=== PATIENT | female | born 1960 | race Caucasian/White ===

== ENCOUNTER → 2016-03-18 | Outpatient (CLI) | payer OTHER ==
[~2016-03-18] MED LIST: GADOBUTROL 10 ML VIAL IVP ONE
--- NOTE | 2016-03-18 11:59 | MR ---
MRI of the Brain (Without and With Contrast) Clinical History: 55-year-old female with a history of multiple sclerosis. ICD 10 Diagnostic Codes: R28.89, R20.2, and G35. Technique: T1-weighted images were acquired axially and sagittally from the foramen magnum to the valentino denis. Axial fast inversion recovery, fast T2-weighted, and diffusion-weighted axial images were obtai hayden without contrast. Postcontrast axial and coronal T1W, and sagittal T2 FLAIR images followed the u neventful intravenous administration of 8 mL of Gadavist contrast. This was performed in conjunction with contrast-enhanced MR imaging of the cervical and thoracic spine, which will be reported separate ly. Comparison Study: Unenhanced CT scan of the brain, dated July 15, 2013. Findings: There is mild prominence of the ventricles and basilar cisterns, consistent with some mild underlying atrophy. There are extensive bilateral subcortical and deep white matter areas of discrete and more confluent hyperintense T2-weighted, signal at and above the level of the ventricles, howeve r also noted posterior to the occipital horns, throughout the salud, and extending to the periventricu lar and cerebellar portions of the superior and middle cerebellar peduncles. Many of the supra and in fratentorial lesions do enhance. There are a couple of ring-enhancing lesions seen in the left fronta l lobe. There is an 11 mm enhancing lesion in the left splenium of the corpus callosum. These aggrega te findings likely represent areas of active demyelination (presuming that the patient does not also have concurrent underlying metastatic disease of other etiology). On the FLAIR sequences, many of the se lesions have an orientation perpendicular to the lateral ventricles (oftentimes seen in multiple s clerosis). Many of the lesions throughout the supra- and infratentorial also have restricted diffusio n, however these findings are likely secondary to T2 shine through as the lesions appear hyperintense on the ADC map. The SWI sequences did not reveal any blooming artifact to suggest occult hemorrhagic products or amyloid angiopathy. There is no acute intracranial hemorrhage. The cerebellar tonsils are in a normal position. The pitui tary gland is normal in size. Normally-expected signal flow-voids are noted in the superior sagittal sinus, the vertebrobasilar artery, and in both internal carotid arteries indicating patency. Postcont rast images demonstrate no abnormal leptomeningeal enhancement. The paranasal sinuses and the mastoid air cells are clear. The orbits and pineal gland are normal. Impression: Numerous supra- and infratentorial foci of discrete and more confluent white matter disea se are most consistent with multiple sclerosis, with areas of acute demyelination. Clinical correlati on and short-term repeat MR evaluation in 3 months may be helpful to assess for interval change.
--- NOTE | 2016-03-18 13:01 | MR ---
Unenhanced and Enhanced MR Imaging of the Cervical Spine Clinical History: 55-year-old female with gait and mobility abnormalities, skin paresthesias, and a h istory of multiple sclerosis. ICD 10 Diagnostic Codes: R26.89, R20.2, and G35. Technique: Sagittal T1, T2, STIR, and contrast-enhanced fat-saturated T1 and T2 FLAIR sequences were obtained from the level of the clivus caudally to the T5-T6 disk interspace. These are supplemented b y 3-D FSE T2 and pre and postcontrast axial T1-weighted sequences. The patient received 8 mL of IV Ga davist without complication. This exam was performed in conjunction with MR imaging of the brain and thoracic spine, which are separately reported. Comparison Study: None. Findings: The cervical vertebral body heights and posterior alignments are maintained. There is some degenerative disk desiccation seen at multiple levels. There is mild posterior C3-C4 and moderate pos terior C4-C5, C5-C6, and C6-C7 degenerative disk space narrowing. Bone marrow signal is notable for a T1 and T2-weighted hyperintense benign hemangioma which "nulls" on the inversion recovery sequences at the right C4 centrum. There is an abnormal appearance to the spinal cord with some subtle increase d signal seen on the T2-weighted sequences at C2, C4, C5, and the C7 levels; however, with gadolinium , there is enhancement of the cord at C5 and C7 levels and in a patient with a history of multiple sc lerosis, these features would be consistent with acute demyelination. The visualized infratentorial s tructures demonstrate abnormal T2-weighted signal with some mild enhancement at the caudal margin of the salud near the cerebellar peduncle. This anatomy was better delineated on the dedicated MRI study. The prevertebral soft tissues and paraspinal musculature appear normal. There is no evidence of cere bellar tonsillar ectopia. The predental space is normal. There is no stenosis at the C1-C2 level. At the C2-C3 level, there is no focal disc herniation, or significant central canal or neural foramin al stenosis. At the C3-C4 level, there is some minimal circumferential disk bulging; however, there is an adequate amount of CSF ventral and dorsal to the cord. The neural foramina and lateral recesses are patent. At the C4-C5 level, there is some minimal circumferential disk bulging with adequate CSF ventral and dorsal to the cord. Uncovertebral osteophyte results in a mild degree of left and a moderate degree o f right neural foraminal narrowing. At the C5-C6 level, a dorsal disk osteophyte complex results in mild central canal stenosis. Uncovert ebral hypertrophy results in moderate bilateral neural foraminal stenosis. At the C6-C7 level, there is some minimal broad-based circumferential disk bulging without central ca nal stenosis. Mild uncovertebral hypertrophy on the left results in mild left C6-C7 neural foraminal narrowing. The right neural foramen is patent. At the C7-T1 level, there is no central canal or neural foraminal stenosis. The visualized upper thoracic spine is unremarkable. There is some flow-related CSF dorsal to the cor d in this patient with a capacious thecal sac. Impression: 1. There are infratentorial demyelinating lesions which were better delineated on MR imaging of the b rain, and there are also foci of demyelination in the cervical cord at C2, C4, C5, and C7 with areas of acute demyelination at the C5 and C7 levels. 2. Mild degenerative spondylosis and disk disease with some uncovertebral hypertrophy, resulting in s ome neural foraminal stenoses at C4-C5, C5-C6, and C6-C7, as detailed above.
--- NOTE | 2016-03-18 15:27 | MR ---
Unenhanced and Enhanced MR Imaging of the Thoracic Spine Clinical History: 55-year-old female with gait and mobility abnormality, skin paresthesias, and a monster or history of multiple sclerosis. ICD 10 Diagnostic Codes: R26.89, R20.2, and G35. Technique: Sagittal T1-weighted survey sequences of the cervical, thoracic, and lumbar spine were obt ained for the purposes of counting vertebral bodies. Subsequently, sagittal T1, FSE T2, STIR, and fat saturated contrast-enhanced T1-weighted sequences of the thoracic spine were obtained, and supplemen neri by stacked axial T1 pre- and postcontrast and FSE T2-weighted sequences. The patient received 8 m L of IV Gadavist without complication. This exam was performed in conjunction with MR imaging of the cervical spine and brain, reported separately. Findings: The thoracic vertebral body heights and posterior alignments are maintained. Bone marrow si gnal is essentially within normal limits. There is some minimal cortical endplate degenerative change along the anterior margins of T7-T8, where there is some very mild anterior disk space narrowing. Th e conus medullaris has a normal morphology, terminating at the T12-L1 junction. There is some CSF roni w-related artifact dorsal to the cord in this patient with a capacious thecal sac. There is no focal disk herniation, canal stenosis, or neural foraminal impingement. The thoracic cord signal and calibe r are normal. There is no focus of demyelination, unusual enhancement, myelomalacia, or syrinx. Degenerative disk disease at C5-C6 and C6-C7 was previously noted on the MRI study, which had also de monstrated some demyelinating lesions at C5 and C7. The visualized prevertebral soft tissues are norm al. There are tiny bilateral pleural effusions. A moderate-sized hiatal hernia is identified. There i s a tiny cortical cyst in the upper pole of the right kidney and left kidney. Impression: 1. The MRI appearance of the thoracic spine is within normal limits for age. 2. Tiny bilateral pleural effusions. 3. Moderate-sized hiatal hernia. Please also refer to the report of the MRI of the cervical spine which identified areas of cord demye lination.
== END ==
LOC: FIMAGING 08:30
PROVIDERS: ATTEND Psychiatry & Neurology Neurology
DX: M50.322 Other cervical disc degeneration at C5-C6 level (principal); M50.323 Other cervical disc degeneration at C6-C7 level; M47.892 Other spondylosis, cervical region; M48.02 Spinal stenosis, cervical region; G35 Multiple sclerosis; J90 Pleural effusion, not elsewhere classified; K44.9 Diaphragmatic hernia without obstruction or gangrene
CPT/HCPCS: A9585

== ENCOUNTER 2017-03-11 16:03 | Inpatient (IN) | payer OTHER ==
[2017-03-13] MEDS ORDERED: ONDANSETRON 4 MG/2 ML VIAL IV PRN (13:40)
[2017-03-13] MEDS ORDERED: predniSONE 20 MG TAB PO SCH (13:45)
--- NOTE | 2017-03-13 14:17 | GHP ---
[f rep st] HISTORY AND PHYSICAL POST ADMISSION PHYSICIAN EVALUATION AND REHABILITATION TREATMENT PLAN DATE OF ADMISSION: 03/13/2017 DATE OF EVALUATION: March 13, 2017. TIME OF EVALUATION: 12:55. REFERRING FACILITY: [facility]. REFERRING PHYSICIAN: Ashley Chandler MD IMPAIRMENT GROUP: 3.1. DATE OF ONSET: 03/07/2017. CONSULTING PHYSICIANS: She was seen by neurologist, Dr. Solorzano. REHABILITATION DIAGNOSIS: Multiple sclerosis flare with left-sided weakness. ETIOLOGIC DIAGNOSIS: Multiple sclerosis. HISTORY OF PRESENT ILLNESS: This patient came to [facility] with acute weakness and inability to walk. She has a history of multiple sclerosis and had exacerbations in the previous year. She was treated with Copaxone, but had subsequent exacerbations while on Copaxone, so it was discontinued. She also had urinary incontinence. Weakness had begun approximately 4 weeks previously and had progressed more rapidly in the previous several days. She had an MRI of the brain in the emergency department, which showed areas of active demyelination. She was seen by Neurology and she was treated with IV methylprednisolone 1 g per day for 5 days, and subsequently started on an oral prednisone taper. She was beginning to ambulate at discharge, and was appropriate for inpatient rehabilitation to optimize her mobility and activities of daily living. STUDIES AND LABS: Other than the MRI, she had CBC and a basic metabolic profile done, which were essentially within normal limits. Urinalysis was done , which showed trace of leukocyte esterase, and I have no record of the culture results, but presumably it was negative. TSH was normal. PRECAUTIONS: She is a fall risk. ACTIVE COMORBIDITIES: She has a tier 3 comorbidity of hemiparesis. She otherwise has no active tier 1, tier 2 or tier 3 comorbidities. PAST MEDICAL HISTORY: Is significant only for multiple sclerosis. She has not had any surgeries. PREHOSPITAL MEDICATIONS: She had been started on prednisone prior to her admission. She also took a vitamin D supplement. ADMISSION MEDICATIONS: 1. Prednisone on a taper from 60 mg over 2 weeks. 2. Cholecalciferol 400 units/mL oral drops 2000 units p.o. daily. 3. Pantoprazole 40 mg p.o. daily while taking steroids. ALLERGIES: She is allergic to penicillins. PSYCHOSOCIAL HISTORY: She is . She lives with her . She has 3 adult children, 2 of whom are in [place], and 1 of whom is at the [facility] in [place]. She is a nonsmoker and nondrinker. She and her live in a 1 level house with no steps to enter. 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 FAMILY HISTORY: Her mother of heart disease. Her father had head and neck cancer. He was a smoker. REVIEW OF SYSTEMS: She denies pain, cough, dyspnea, fevers, chills, chest pain , palpitations, nausea, vomiting, diarrhea or constipation. She has awareness of need to urinate, but then she has incontinence; this happens 2 or 3 times through the day, and also at night. She denies dysuria. She denies recent weight gain or weight loss. She denies joint swelling or joint pain. Otherwise , a 10-point review of systems is negative. PHYSICAL EXAM: VITAL SIGNS: Blood pressure is 96/64, heart rate is 86, respiratory rate is 16, oxygen saturation is 93% on room air. Temperature is 36.7 degrees centigrade. Her weight is 72.6 kg, for a body mass index of 23. GENERAL: This is a well-nourished, well-developed woman, lying in bed, dressed in street clothes. Cooperative and in no acute distress. HEENT: Extraocular movements are intact. Pupils are equal, round, and reactive to light. Mucous membranes are moist. Dentition is in good condition. There are no oropharyngeal mucosal lesions. She has an uncrowded airway, Mallampati class 2. She has mild dysarthria. NECK: Supple. HEART: There is a regular rate and rhythm with no murmurs, rubs, or gallops. LUNGS: Clear to auscultation bilaterally. ABDOMEN : Soft, nontender, nondistended, with normoactive bowel sounds. There is no palpable bladder. EXTREMITIES: There is no cyanosis, clubbing, or edema. Radial and dorsalis pedis pulses are 2+ bilaterally. NEUROLOGIC: She is alert and oriented x3. Cranial nerves 2-12 are grossly intact, but there is mild dysarthria. Motor strength on the right is 5/5 in the upper and lower extremities, and the left hand instructional technologist is 3 to 4/5, biceps are 4/5, triceps are 3/ 5. In the leg, hip flexor is 3/5, quadriceps are 4 to 5/5, and hamstrings are 3 /5. Sensation is intact to light touch overall. Deep tendon reflexes are 2+ bilaterally at the biceps, patellar, and Achilles tendons. There is no tremor. She needs assistance to arise from supine to seated, but when she is seated, she can maintain seated posture with support of her arms, the left more so than the right. CURRENT LEVEL OF FUNCTION: Per the pre-admission screen, regarding grooming she needed moderate assistance, it was done standing at the sink. Dressing required moderate assistance for lower extremities and supervision and setup for the upper extremities. Bladder function was noted to need moderate assistance. Bed mobility was done with minimal assistance. Transfers with moderate assistance. Balance was poor, endurance was poor. She ambulated 10 feet on 2 occasions. She was noted to have mild dysarthria. Regarding cognition, she was noted to be alert and oriented. She followed simple directions and verbal cues. She was impulsive and overall needed minimal assistance for cognitive tasks. She was noted to have low endurance and poor balance. On today's exam, there are no changes from the preadmission screen. IMPRESSION: This is a 56-year-old woman with a 15 year history of multiple sclerosis. She has had exacerbations in the past year, which broke through treatment with Copaxone and now she comes in with another exacerbation, which has left her with considerable debility, regarding mobility and activities of daily living. Additionally, she has dysarthria and cognitive impairment. She has urinary incontinence; unclear whether she is developing neurogenic bladder or whether it is related to immobility. She will benefit from inpatient rehabilitation, where she will receive physical and occupational therapy to optimize mobility and activities of daily living, towards discharge to home with assistance of her . It is anticipated that she will achieve the modified independent level with ADLs and mobility. She will benefit from speech and language pathology regarding cognition and dysarthria. It is anticipated that she will achieve independence sufficient that she can be home alone for brief periods. She will benefit from nursing care regarding urinary incontinence with scheduled toileting and bladder scanning, regarding fall risk, risk for infections, and for medication administration and education. She will benefit from care of a physician for management of any symptoms that may come up and for a risk for neurologic deterioration. She will receive therapy with physical therapy, occupational therapy, and speech and language pathology for 60 minutes per day for each discipline on 5-7 days of the week. Her expected duration of stay is 12-14 days. It is anticipated that upon discharge she will continue to benefit from home health services, including speech and language pathology, occupational therapy, physical therapy and a multiple sclerosis support group. PLAN: 1. Multiple sclerosis flare with left-sided weakness and impairment to mobility and activities of daily living, status post 5 days of high-dose IV corticosteroids. PT and OT to optimize mobility towards home at the modified independent level. 2. Cognitive impairment and dysarthria to be assessed and treated per Speech and Language Pathology. 3. Urinary incontinence. Will initiate the rehabilitation bladder program with timed voiding every 2 hours while awake. Will do bladder scanning to ensure that she is not having overflow incontinence. 4. Possible history of vitamin D deficiency. Continue vitamin D supplement. 5. Medical management of multiple sclerosis. Continue prednisone taper as ordered out of the hospital. 6. Prophylaxis. She has been discharged onpantoprazole for the duration of her prednisone taper. She has marked immobility and is at risk for deep vein thrombosis. Continue enoxaparin subcutaneous daily until her mobility improves. Followup. She intends to change neurologist and not follow up with Dr. Hernandez. Her is exploring options for whom she could be seeing instead. The neurology followup plan will be coordinated between the and the pillowcase cleaner. /[id number]/MODL MTDD
[2017-03-14] MEDS: ENOXAPARIN 40 MG/0.4 ML SYR SC SCH (08:58)
[2017-03-14] MEDS: predniSONE 20 MG TAB PO SCH (08:58)
[2017-03-14] MEDS: CHOLECALCIFEROL VIT D3 1,000 UNITS TAB PO SCH (08:58)
[2017-03-14] MEDS: PANTOPRAZOLE SODIUM 40 MG TAB PO SCH (08:58)
--- NOTE | 2017-03-14 11:13 | SOAPPROG ---
SOAP Progress Note Assessment/Plan: Assessment: * Multiple sclerosis flare with left-sided weakness and impairment to mobility and activities of daily living, status post 5 days of high-dose IV corticosteroids. * Max assist for lower body dressing, moderate assist for toileting. Minimal assist for transfers and ambulation with front wheeled walker. * Continue PT and OT to optimize mobility towards home at the modified independent level. * Cognitive impairment and dysarthria to be assessed and treated per Speech and Language Pathology. * Urinary incontinence. * Rehabilitation bladder program with timed voiding every 2 hours while awake. * Bladder scanning to ensure that she is not having overflow incontinence. * Vitamin D deficiency. Continue vitamin D supplement. * Medical management of multiple sclerosis. Continue prednisone taper as ordered out of the hospital. * Prophylaxis. She has been discharged on pantoprazole for the duration of her prednisone taper. She has marked immobility and is at risk for deep vein thrombosis. Continue enoxaparin subcutaneous daily until her mobility improves. Followup. She intends to change neurologist and not follow up with Dr. Hernandez. Her is exploring options for whom she could be seeing instead. The neurology followup plan will be coordinated between the and the catalytic case operator. 03/14/17 13:13 Subjective: No complaints. Slept well. Not in pain. Participating in therapies. Has not had urinary incontinence episode; nurses are assisting to the commode and she is getting there in time. Objective: Vital Signs Temp Pulse Resp BP Pulse Ox 36.6 C 88 16 92/68 L 96 03/14/17 08:00 03/14/17 08:00 03/14/17 08:00 03/14/17 08:00 03/14/17 08:00 03/13/17 03/14/17 03/15/17 05:59 05:59 05:59 Intake Total 120 Balance 120 Physical Exam - Physical Exam General Appearance: WD/WN, alert, no apparent distress Respiratory: No respiratory distress, No accessory muscle use Skin: normal color, warm/dry Neuro/Psych: alert, normal mood/affect, oriented x 3 ICD10 Worksheet Patient Problems: Problems Problem Status Onset Multiple sclerosis Acute Urinary incontinence Acute
[2017-03-14] MEDS ORDERED: SENNOSIDES 1 TAB PO PRN (11:14)
[2017-03-14] MEDS ORDERED: BISACODYL 10 MG SUPP PR PRN (11:14)
--- NOTE | 2017-03-14 17:06 | PDOREHIP ---
Admission [facility] - Admission - 3 Day Assessment Period Admission Date/Day 1: 03/13/17 Day 2: 03/14/17 Day 3: 03/15/17 - Active Diagnoses Comorbidities and Co-existing Conditions at Admission: 66812. None of the Above - Skin Conditions Unhealed Pressure Ulcer (1 or more/Stage 1 or >)-Admission: 0. No
[2017-03-15] MEDS: POLYETHYLENE GLYCOL 3350 17 GM PKT PO SCH (09:05)
[2017-03-15] MEDS: CHOLECALCIFEROL VIT D3 1,000 UNITS TAB PO SCH (09:06)
[2017-03-15] MEDS: PANTOPRAZOLE SODIUM 40 MG TAB PO SCH (09:07)
[2017-03-15] MEDS: predniSONE 20 MG TAB PO SCH (09:09)
[2017-03-15] MEDS: ENOXAPARIN 40 MG/0.4 ML SYR SC SCH (09:10)
--- NOTE | 2017-03-15 12:54 | SOAPPROG ---
SOAP Progress Note Assessment/Plan: Assessment: * Multiple sclerosis flare -LEFT GREATER THAN RIGHT UPPER AND LOWER EXTREMITY WEAKNESS WITH impairment to mobility and activities of daily living, status post 5 days of high-dose IV corticosteroids. * Max assist for lower body dressing, moderate assist for toileting. Minimal assist for transfers and ambulation with front wheeled walker. * Continue PT and OT to optimize mobility towards home at the modified independent level. * GAIT DYSFUNCTION-PATIENT NEEDS LEFT AFO. DEPRESSION-PATIENT HAS DEPRESSED AFFECT AND WAS TEARFUL DURING TODAY'S EXAMINATION. MAY WANT TO CONSIDER LOW-DOSE ANTIDEPRESSANT THAT DOES NOT AFFECT BLADDER CONTRACTILITY. * Cognitive impairment and dysarthria to be assessed and treated per Speech and Language Pathology. 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 NEUROPSYCHOLOGY CONSULT MAY BE HELPFUL * Urinary incontinence. POSSIBLE UTI. WILL CHECK URINE FOR UA, C&S IF NECESSARY. PATIENT CONTINUES WITH INCONTINENCE. * Rehabilitation bladder program with timed voiding every 2 hours while awake. * Bladder scanning to ensure that she is not having overflow incontinence. * Vitamin D deficiency. Continue vitamin D supplement. * Medical management of multiple sclerosis. Continue prednisone taper as ordered out of the hospital. * Prophylaxis. She has been discharged on pantoprazole for the duration of her prednisone taper. She has marked immobility and is at risk for deep vein thrombosis. Continue enoxaparin subcutaneous daily until her mobility improves. Followup. 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 PATIENT ENCOURAGED TO SEEK ADVICE OF NEUROLOGIST REGARDING NEW TREATMENTS FOR HER MULTIPLE SCLEROSIS AND PATIENT ADVISED THAT THESE TREATMENTS MAY VERY WELL DECREASED THE FREQUENCY, DURATION AND INTENSITY OF FUTURE MULTIPLE SCLEROSIS FLARE UPS. PATIENT EXPRESSED VERBAL COMPREHENSION. She intends to change neurologist and not follow up with Dr. Hernandez. Her is exploring options for whom she could be seeing instead. The neurology followup plan will be coordinated between the and the caseworker protective services. 03/15/17 12:57 Subjective: No new complaints per patient. Nursing expresses concerns that patient may have a UTI. Objective: Vital Signs Temp Pulse Resp BP Pulse Ox 36.6 C 74 16 88/52 L 98 03/15/17 07:27 03/15/17 07:27 03/15/17 07:27 03/15/17 07:27 03/15/17 07:27 03/14/17 03/15/17 03/16/17 05:59 05:59 05:59 Intake Total 120 500 120 Balance 120 500 120 Physical Exam - Physical Exam General Appearance: WD/WN, alert, moderate distress (The patient became tearful during today's exam regarding status of her multiple sclerosis and previous treatment by neurologist.) Respiratory: lungs clear, normal breath sounds Cardiac/Chest: No edema Abdomen: normal bowel sounds, non-tender, soft Skin: normal color, warm/dry Neuro/Psych: motor weakness (Left upper and left lower extremity weakness greater than right upper and lower extremity weakness. 3-/5 left ankle dorsiflexors), cognition abnormalities ICD10 Worksheet Patient Problems: Problems Problem Status Onset Multiple sclerosis Acute Urinary incontinence Acute
[2017-03-16] MEDS: POLYETHYLENE GLYCOL 3350 17 GM PKT PO SCH (08:26)
[2017-03-16] MEDS: CHOLECALCIFEROL VIT D3 1,000 UNITS TAB PO SCH (08:27)
[2017-03-16] MEDS: PANTOPRAZOLE SODIUM 40 MG TAB PO SCH (08:27)
[2017-03-16] MEDS: predniSONE 20 MG TAB PO SCH (08:28)
[2017-03-16] MEDS: ENOXAPARIN 40 MG/0.4 ML SYR SC SCH (09:31)
--- NOTE | 2017-03-16 10:33 | SOAPPROG ---
SOAP Progress Note Assessment/Plan: Assessment/Plan Ms. Gallardo is a 56 y/o female with h/o MS with multiple exacerbations over the last 1 year. * Multiple sclerosis flare -LEFT GREATER THAN RIGHT UPPER AND LOWER EXTREMITY WEAKNESS WITH impairment to mobility and activities of daily living, status post 5 days of high-dose IV corticosteroids. * Max assist for lower body dressing, moderate assist for toileting. Minimal assist for transfers and ambulation with front wheeled walker. * Continue PT and OT to optimize mobility towards home at the modified independent level. * GAIT DYSFUNCTION-PATIENT NEEDS LEFT AFO. 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 PATIENT ENCOURAGED TO SEEK ADVICE OF NEUROLOGIST REGARDING NEW TREATMENTS FOR HER MULTIPLE SCLEROSIS AND PATIENT ADVISED THAT THESE TREATMENTS MAY VERY WELL DECREASED THE FREQUENCY, DURATION AND INTENSITY OF FUTURE MULTIPLE SCLEROSIS FLARE UPS. PATIENT EXPRESSED VERBAL COMPREHENSION. She intends to change neurologist and not follow up with Dr. Hernandez. Her is exploring options for whom she could be seeing instead. The neurology followup plan will be coordinated between the and the case manage *Adjustment Reaction - Pt struggling with the recent progression/multiple exacerbations over the last year. Appropriately reacting but will monitor mood to determine if medications would be warranted. * Cognitive impairment and dysarthria to be assessed and treated per Speech and Language Pathology. Pt with some episodes of confusion - MENDER KNIT GOODS providing assessment * Urinary incontinence. * Rehabilitation bladder program with timed voiding every 2 hours while awake. * Bladder scanning to ensure that she is not having overflow incontinence. * Abnormal urinalysis- given that patient without other symptoms (no burning, no fevers/chills, no change in functional status ) will await cultures before considering treatment at this time * Vitamin D deficiency. Continue vitamin D supplement. * Medical management of multiple sclerosis. Continue prednisone taper as ordered out of the hospital. * Prophylaxis. She has been discharged on pantoprazole for the duration of her prednisone taper. She has marked immobility and is at risk for deep vein thrombosis. Continue enoxaparin subcutaneous daily until her mobility improves. Today's review - Will await Urinary culture before considering any ABX intervention. Will get PVR's to determine if having retention vs hyper- reflexic bladder response. Overall not ill appearing and no other signs of infection 03/16/17 10:28 Subjective: Feeling pretty good today -a little more hopeful with recent discussion about neurologist changes. Feeling good with out subjective fevers/chills. Denies any burning with urination. Objective: Vital Signs Temp Pulse Resp BP Pulse Ox 36.7 C 64 16 107/70 98 03/16/17 06:31 03/16/17 06:31 03/16/17 06:31 03/16/17 06:31 03/16/17 06:31 03/15/17 03/16/17 03/17/17 05:59 05:59 05:59 Intake Total 500 838 Balance 500 838 Physical Exam - Physical Exam General Appearance: alert, other (Mildly tearful when talking about her deficits ) Respiratory: lungs clear, normal breath sounds Cardiac/Chest: regular rate, rhythm Abdomen: normal bowel sounds, non-tender Skin: normal color Extremities: other (no LE edema) Neuro/Psych: alert, oriented x 3 ICD10 Worksheet Patient Problems: Problems Problem Status Onset Multiple sclerosis Acute Urinary incontinence Acute
[2017-03-17] MEDS: POLYETHYLENE GLYCOL 3350 17 GM PKT PO SCH (08:17)
[2017-03-17] MEDS: CHOLECALCIFEROL VIT D3 1,000 UNITS TAB PO SCH (08:18)
[2017-03-17] MEDS: predniSONE 20 MG TAB PO SCH (08:19)
[2017-03-17] MEDS: PANTOPRAZOLE SODIUM 40 MG TAB PO SCH (08:19)
[2017-03-17] MEDS: ENOXAPARIN 40 MG/0.4 ML SYR SC SCH (08:21)
--- NOTE | 2017-03-17 10:26 | SOAPPROG ---
SOAP Progress Note Assessment/Plan: Assessment/Plan Ms. Gallardo is a 56 y/o female with h/o MS with multiple exacerbations over the last 1 year. * Multiple sclerosis flare -LEFT GREATER THAN RIGHT UPPER AND LOWER EXTREMITY WEAKNESS WITH impairment to mobility and activities of daily living, status post 5 days of high-dose IV corticosteroids. * Max assist for lower body dressing, moderate assist for toileting. Minimal assist for transfers and ambulation with front wheeled walker. * Continue PT and OT to optimize mobility towards home at the modified independent level. * GAIT DYSFUNCTION-PATIENT NEEDS LEFT AFO. 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 PATIENT ENCOURAGED TO SEEK ADVICE OF NEUROLOGIST REGARDING NEW TREATMENTS FOR HER MULTIPLE SCLEROSIS AND PATIENT ADVISED THAT THESE TREATMENTS MAY VERY WELL DECREASED THE FREQUENCY, DURATION AND INTENSITY OF FUTURE MULTIPLE SCLEROSIS FLARE UPS. PATIENT EXPRESSED VERBAL COMPREHENSION. She intends to change neurologist and not follow up with Dr. Hernandez. Her is exploring options for whom she could be seeing instead. The neurology followup plan will be coordinated between the and the case manage *Adjustment Reaction - Pt struggling with the recent progression/multiple exacerbations over the last year. Appropriately reacting but will monitor mood to determine if medications would be warranted. * Cognitive impairment and dysarthria to be assessed and treated per Speech and Language Pathology. Pt with some episodes of confusion - INSURANCE CLAIM REPRESENTATIVE providing assessment * Urinary incontinence. * Rehabilitation bladder program with timed voiding every 2 hours while awake. * Bladder scanning to ensure that she is not having overflow incontinence. * Abnormal urinalysis- given that patient without other symptoms (no burning, no fevers/chills, no change in functional status ) will await cultures before considering treatment at this time * Vitamin D deficiency. Continue vitamin D supplement. * Medical management of multiple sclerosis. Continue prednisone taper as ordered out of the hospital. * Prophylaxis. She has been discharged on pantoprazole for the duration of her prednisone taper. She has marked immobility and is at risk for deep vein thrombosis. Continue enoxaparin subcutaneous daily until her mobility improves. Today's update - Daily improvements - again no infectious signs/symptoms as per review with patient today. Not able to locate a urine culture per review of labs/micro today. Will not resend unless patient with symptoms. Mood somewhat improved today - will likely have some ups/downs during the next weeks but will provide support and monitor management. Continue prednisone taper and monitor symptoms. 03/17/17 10:30 Subjective: Doing well today - no new neurologic changes - continues to feel that overall her strength on the LUE is improving. No burning with urination, no fevers/ chills. no new systemic infections signs/symptoms. pt reporting increased mood. Objective: Vital Signs Temp Pulse Resp BP Pulse Ox 36.9 C 65 16 91/69 L 94 03/17/17 06:20 03/17/17 06:20 03/17/17 06:20 03/17/17 06:20 03/17/17 06:20 03/16/17 03/17/17 03/18/17 05:59 05:59 05:59 Intake Total 838 660 790 Output Total 300 Balance 838 360 790 Physical Exam - Physical Exam General Appearance: alert Respiratory: lungs clear Cardiac/Chest: regular rate, rhythm Abdomen: normal bowel sounds, non-tender Neuro/Psych: alert, normal mood/affect ICD10 Worksheet Patient Problems: Problems Problem Status Onset Multiple sclerosis Acute Urinary incontinence Acute
[2017-03-18] MEDS: CHOLECALCIFEROL VIT D3 1,000 UNITS TAB PO SCH (08:42)
[2017-03-18] MEDS: PANTOPRAZOLE SODIUM 40 MG TAB PO SCH (08:42)
[2017-03-18] MEDS: predniSONE 20 MG TAB PO SCH (08:43)
[2017-03-18] MEDS: ENOXAPARIN 40 MG/0.4 ML SYR SC SCH (08:44)
[2017-03-18] MEDS: POLYETHYLENE GLYCOL 3350 17 GM PKT PO SCH (08:44)
[2017-03-18] MEDS ORDERED: ONDANSETRON 4 MG/2 ML VIAL IVP PRN (13:30)
--- NOTE | 2017-03-18 13:47 | SOAPPROG ---
SOAP Progress Note Assessment/Plan: Assessment: * Multiple sclerosis flare with left-sided weakness and impairment to mobility and activities of daily living, status post 5 days of high-dose IV corticosteroids. * Initial functional independence measure 56 on 03/15/2017. Max assist for lower body dressing, moderate assist for toileting. Minimal assist for transfers and ambulation with front wheeled walker. * Continue PT and OT to optimize mobility towards home at the modified independent level. * Cognitive impairment and dysarthria. * Impaired attention memory and executive function. * Continue GENERAL FREIGHT AGENT * Urinary incontinence. * Rehabilitation bladder program with timed voiding every 2 hours while awake. * Bladder scanning has ruled out overflow incontinence. * Vitamin D deficiency. Continue vitamin D supplement. * Medical management of multiple sclerosis. Continue prednisone taper as ordered out of the hospital. * Prophylaxis. She has been discharged on pantoprazole for the duration of her prednisone taper. She has marked immobility and is at risk for deep vein thrombosis. Continue enoxaparin subcutaneous daily until her mobility improves. Followup. Case Management assisting in finding new primary care provider and neurologist closer to home in [place]. 03/18/17 13:18 Subjective: Nurse's notes strong odor to urine. Patient denies any symptoms of UTI including no dysuria, no urinary frequency, no flank pain and no fevers or chills. Patient reports that she is getting stronger and walking better. Objective: Vital Signs Temp Pulse Resp BP Pulse Ox 36.8 C 83 14 102/71 97 03/18/17 08:00 03/18/17 08:00 03/18/17 08:00 03/18/17 08:00 03/18/17 08:00 03/17/17 03/18/17 03/19/17 05:59 05:59 05:59 Intake Total 660 1248 450 Output Total 300 660 Balance 360 588 450 Physical Exam - Physical Exam General Appearance: WD/WN, alert, no apparent distress Respiratory: normal breath sounds, No crackles, No rhonchi, No wheezing Cardiac/Chest: regular rate, rhythm, edema (Trace to 1+ bilateral lower extremities) Skin: normal color, warm/dry Neuro/Psych: alert, normal mood/affect, oriented x 3 ICD10 Worksheet Patient Problems: Problems Problem Status Onset Multiple sclerosis Acute Urinary incontinence Acute
[2017-03-19] MEDS: CHOLECALCIFEROL VIT D3 1,000 UNITS TAB PO SCH (07:36)
[2017-03-19] MEDS: PANTOPRAZOLE SODIUM 40 MG TAB PO SCH (07:36)
[2017-03-19] MEDS: predniSONE 20 MG TAB PO SCH (07:36)
[2017-03-19] MEDS: ENOXAPARIN 40 MG/0.4 ML SYR SC SCH (07:37)
[2017-03-19] MEDS: POLYETHYLENE GLYCOL 3350 17 GM PKT PO SCH (07:37)
--- NOTE | 2017-03-19 13:14 | SOAPPROG ---
SOAP Progress Note Assessment/Plan: Assessment: * Multiple sclerosis flare with left-sided weakness and impairment to mobility and activities of daily living, status post 5 days of high-dose IV corticosteroids. * Initial functional independence measure 56 on 03/15/2017. Max assist for lower body dressing, moderate assist for toileting. Minimal assist for transfers and ambulation with front wheeled walker. * Continue PT and OT to optimize mobility towards home at the modified independent level. * Cognitive impairment and dysarthria. * Impaired attention memory and executive function. * Continue CERTIFIED WELLNESS PROGRAM COORDINATOR * Urinary incontinence. * Rehabilitation bladder program with timed voiding every 2 hours while awake. * Bladder scanning has ruled out overflow incontinence. * Vitamin D deficiency. Continue vitamin D supplement. * Medical management of multiple sclerosis. Continue prednisone taper as ordered out of the hospital. * Prophylaxis. She has been discharged on pantoprazole for the duration of her prednisone taper. She has marked immobility and is at risk for deep vein thrombosis. Continue enoxaparin subcutaneous daily until her mobility improves. Followup. Case Management assisting in finding new primary care provider and neurologist closer to home in [place]. 03/19/17 13:12 Subjective: No complaints. Feeling stronger. Says left upper extremity sometimes has a mind of its own. Per therapy notes she loses track of its position and it falls off the front wheeled walker. Objective: Vital Signs Temp Pulse Resp BP Pulse Ox 36.9 C 62 14 84/67 L 98 03/19/17 06:58 03/19/17 06:58 03/19/17 06:58 03/19/17 06:58 03/19/17 06:58 03/18/17 03/19/17 03/20/17 05:59 05:59 05:59 Intake Total 1248 870 Output Total 660 350 200 Balance 588 520 -200 Physical Exam - Physical Exam General Appearance: WD/WN, alert, no apparent distress Respiratory: No respiratory distress, No accessory muscle use Skin: normal color, warm/dry Neuro/Psych: alert, normal mood/affect, oriented x 3, other (Demonstrates full active range of motion of the left upper extremity) ICD10 Worksheet Patient Problems: Problems Problem Status Onset Multiple sclerosis Acute Urinary incontinence Acute
[2017-03-20] MEDS: predniSONE 20 MG TAB PO SCH (08:09)
[2017-03-20] MEDS: PANTOPRAZOLE SODIUM 40 MG TAB PO SCH (08:09)
[2017-03-20] MEDS: CHOLECALCIFEROL VIT D3 1,000 UNITS TAB PO SCH (08:09)
[2017-03-20] MEDS: POLYETHYLENE GLYCOL 3350 17 GM PKT PO SCH (08:11)
[2017-03-20] MEDS: ENOXAPARIN 40 MG/0.4 ML SYR SC SCH (08:12)
--- NOTE | 2017-03-20 15:07 | SOAPPROG ---
SOAP Progress Note Assessment/Plan: Assessment: * Multiple sclerosis flare with left-sided weakness and impairment to mobility and activities of daily living, status post 5 days of high-dose IV corticosteroids. * Initial functional independence measure 56 on 03/15/2017. Max assist for lower body dressing, moderate assist for toileting. Minimal assist for transfers and ambulation with front wheeled walker. * Considerable improvement; now contact guard assist for most mobility and activities of daily living as of 03/20/2017. * Continue PT and OT to optimize mobility towards home at the modified independent level. * Cognitive impairment and dysarthria. * Impaired attention memory and executive function. * Continue MOTION STUDY TECHNICIAN * Urinary incontinence. * Rehabilitation bladder program with timed voiding every 2 hours while awake. * Bladder scanning has ruled out overflow incontinence. * Appears to be resolving with no episodes of incontinence charted x2 days as of 03/20/2017. * Vitamin D deficiency. Continue vitamin D supplement. * Medical management of multiple sclerosis. Continue prednisone taper as ordered out of the hospital. * Prophylaxis. She has been discharged on pantoprazole for the duration of her prednisone taper. Mobility is much improved as of 03/20/2017. Will discontinue enoxaparin starting 03/21/2017. Followup. Case Management assisting in finding new primary care provider and neurologist closer to home in [place]. Tentative discharge date 04/03/2017. 03/20/17 15:46 Subjective: No complaints. Sleeping well. Denies pain. Denies urinary symptoms and reports that her bladder is working better and better connected to her brain now. Objective: Vital Signs Temp Pulse Resp BP Pulse Ox 36.6 C 60 16 98/66 L 97 03/20/17 05:53 03/20/17 05:53 03/20/17 05:53 03/20/17 05:53 03/20/17 05:53 03/19/17 03/20/17 03/21/17 05:59 05:59 05:59 Intake Total 870 480 468 Output Total 350 825 Balance 520 -345 468 Physical Exam - Physical Exam General Appearance: WD/WN, alert, no apparent distress Respiratory: No respiratory distress, No accessory muscle use Skin: normal color, warm/dry Neuro/Psych: alert, normal mood/affect, oriented x 3, abnormal gait (With 4 wheeled walker and standby assist per Physical therapy, cuing for stride length , slightly wide base of support, cuing to contact guard assist to attend to objects on the left.) ICD10 Worksheet Patient Problems: Problems Problem Status Onset Multiple sclerosis Acute Urinary incontinence Acute
[2017-03-21] MEDS: POLYETHYLENE GLYCOL 3350 17 GM PKT PO SCH (08:35)
[2017-03-21] MEDS: PANTOPRAZOLE SODIUM 40 MG TAB PO SCH (08:37)
[2017-03-21] MEDS: CHOLECALCIFEROL VIT D3 1,000 UNITS TAB PO SCH (08:37)
[2017-03-21] MEDS: predniSONE 20 MG TAB PO SCH (08:37)
[2017-03-21] MEDS: ENOXAPARIN 40 MG/0.4 ML SYR SC SCH (08:59)
--- NOTE | 2017-03-21 13:21 | SOAPPROG ---
SOAP Progress Note Assessment/Plan: Assessment: * Multiple sclerosis flare with left-sided weakness and impairment to mobility and activities of daily living, status post 5 days of high-dose IV corticosteroids. * Initial functional independence measure 56 on 03/15/2017. Max assist for lower body dressing, moderate assist for toileting. Minimal assist for transfers and ambulation with front wheeled walker. * Considerable improvement; now contact guard assist for most mobility and activities of daily living as of 03/20/2017. * Continue PT and OT to optimize mobility towards home at the modified independent level. * Cognitive impairment and dysarthria. * Impaired attention memory and executive function. * Continue WELL LOGGING CAPTAIN MUD ANALYSIS * Urinary incontinence. * Rehabilitation bladder program with timed voiding every 2 hours while awake. * Bladder scanning has ruled out overflow incontinence. * May have neurogenic bladder with episodes of incontinence without perception of need to void. * Vitamin D deficiency. Continue vitamin D supplement. * Medical management of multiple sclerosis. Continue prednisone taper as ordered out of the hospital. * Prophylaxis. She has been discharged on pantoprazole for the duration of her prednisone taper. Mobility is much improved as of 03/20/2017. Will discontinue enoxaparin starting 03/21/2017. Followup. Case Management assisting in finding new primary care provider and neurologist closer to home in [place]. Tentative discharge date 04/03/2017. 03/21/17 13:07 Subjective: No complaints. Confirms that she is right handed. Sleeping well. No cough or dyspnea, no fevers or chills. Objective: Vital Signs Temp Pulse Resp BP Pulse Ox 36.5 C 78 17 98/70 L 98 03/21/17 07:25 03/21/17 07:25 03/21/17 07:25 03/21/17 07:25 03/21/17 07:25 03/20/17 03/21/17 03/22/17 05:59 05:59 05:59 Intake Total 480 468 400 Output Total 825 100 Balance -345 368 400 Physical Exam - Physical Exam General Appearance: WD/WN, alert, no apparent distress Respiratory: No respiratory distress, No accessory muscle use Skin: normal color, warm/dry Neuro/Psych: alert, normal mood/affect, oriented x 3 ICD10 Worksheet Patient Problems: Problems Problem Status Onset Multiple sclerosis Acute Urinary incontinence Acute
[2017-03-22] MEDS: POLYETHYLENE GLYCOL 3350 17 GM PKT PO SCH (09:41)
[2017-03-22] MEDS: CHOLECALCIFEROL VIT D3 1,000 UNITS TAB PO SCH (09:51)
[2017-03-22] MEDS: predniSONE 10 MG TAB PO SCH (09:53)
[2017-03-22] MEDS: PANTOPRAZOLE SODIUM 40 MG TAB PO SCH (09:53)
[2017-03-22] MEDS: ENOXAPARIN 40 MG/0.4 ML SYR SC SCH (09:54)
--- NOTE | 2017-03-22 11:00 | SOAPPROG ---
SOAP Progress Note Assessment/Plan: Assessment: * Multiple sclerosis flare with left-sided weakness and impairment to mobility and activities of daily living, status post 5 days of high-dose IV corticosteroids. * Initial functional independence measure 56 on 03/15/2017, increase to 76 on 2017. SBA.CGA for mobility and ADLs. Left inattention compromises safety; needs cueing. Cues to initiate. Had fecal and urinary incontinence today and did not ask for assistance. * Continue PT and OT to optimize mobility towards home at the modified independent level. * Cognitive impairment and dysarthria. * SLUMS with good memory; impaired attention, memory and executive function. * Not safe to be left alone. * Continue CLARIFIER OPERATOR * Urinary incontinence. * Rehabilitation bladder program with timed voiding every 2 hours while awake. * Bladder scanning has ruled out overflow incontinence. * May have neurogenic bladder with episodes of incontinence without perception of need to void. * Check UA 03/22/2017; C&S if indicated. * Vitamin D deficiency. Continue vitamin D supplement. * Medical management of multiple sclerosis. Continue prednisone taper as ordered out of the hospital. * Prophylaxis. She has been discharged on pantoprazole for the duration of her prednisone taper. Mobility is much improved as of 03/20/2017. Will discontinue enoxaparin starting 03/21/2017. Followup. Case Management assisting in finding new primary care provider and neurologist closer to home in [place]. Attended staffing, 15 min. D/W case mgmt, nursing, PT, OT, CLARIFIER OPERATOR. works full-time but may be able to hire caregiver. Son involved. Set tentative discharge date of 03/29/2017. 03/22/17 15:37 Objective: Vital Signs Temp Pulse Resp BP Pulse Ox 36.4 C 94 17 95/67 L 95 03/22/17 08:00 03/22/17 08:00 03/22/17 08:00 03/22/17 08:00 03/22/17 08:00 03/21/17 03/22/17 03/23/17 05:59 05:59 05:59 Intake Total 468 600 Output Total 100 400 200 Balance 368 200 -200 - Time Spent With Patient Time Spent With Patient: Greater than 35 min floor time today, including more than 50% of time in coordination of care during staffing meeting, and counseling patient. ICD10 Worksheet Patient Problems: Problems Problem Status Onset Multiple sclerosis Acute Urinary incontinence Acute
[2017-03-23] MEDS: predniSONE 10 MG TAB PO SCH (09:25)
[2017-03-23] MEDS: CHOLECALCIFEROL VIT D3 1,000 UNITS TAB PO SCH (09:25)
[2017-03-23] MEDS: ENOXAPARIN 40 MG/0.4 ML SYR SC SCH (09:26)
[2017-03-23] MEDS: PANTOPRAZOLE SODIUM 40 MG TAB PO SCH (09:27)
[2017-03-23] MEDS: POLYETHYLENE GLYCOL 3350 17 GM PKT PO SCH (09:37)
--- NOTE | 2017-03-23 13:31 | SOAPPROG ---
SOAP Progress Note Assessment/Plan: Assessment: * Multiple sclerosis flare with left-sided weakness and impairment to mobility and activities of daily living, status post 5 days of high-dose IV corticosteroids. * Initial functional independence measure 56 on 03/15/2017, increase to 76 on 2017. SBA.CGA for mobility and ADLs. Left inattention compromises safety; needs cueing. Cues to initiate. Had fecal and urinary incontinence today and did not ask for assistance. * Continue PT and OT to optimize mobility towards home at the modified independent level. * Cognitive impairment and dysarthria. * SLUMS with good memory; impaired attention, memory and executive function. * Not safe to be left alone. * Continue EXPORT CLERK * Urinary incontinence. * Rehabilitation bladder program with timed voiding every 2 hours while awake. * Bladder scanning has ruled out overflow incontinence. * May have neurogenic bladder with episodes of incontinence without perception of need to void. * Check UA 03/22/2017; - UA only with slight nitrates. Will defer on antibiotic treatment * Vitamin D deficiency. Continue vitamin D supplement. * Medical management of multiple sclerosis. Continue prednisone taper as ordered out of the hospital. * Prophylaxis. She has been discharged on pantoprazole for the duration of her prednisone taper. Mobility is much improved as of 03/20/2017. Will discontinue enoxaparin starting 03/21/2017. Plan: 03/23/17 13:31 Subjective: No new complaints. Denying any urinary symptoms Objective: Vital Signs Temp Pulse Resp BP Pulse Ox 36.8 C 73 16 94/70 L 93 03/23/17 05:59 03/23/17 05:59 03/23/17 05:59 03/23/17 05:59 03/23/17 05:59 03/22/17 03/23/17 03/24/17 05:59 05:59 05:59 Intake Total 600 200 268 Output Total 400 700 300 Balance 200 -500 -32 Physical Exam - Physical Exam General Appearance: WD/WN, alert, no apparent distress Respiratory: No respiratory distress Skin: normal color, warm/dry Neuro/Psych: alert, normal mood/affect, oriented x 3 ICD10 Worksheet Patient Problems: Problems Problem Status Onset Multiple sclerosis Acute Urinary incontinence Acute
[2017-03-24] MEDS: CHOLECALCIFEROL VIT D3 1,000 UNITS TAB PO SCH (08:33)
[2017-03-24] MEDS: PANTOPRAZOLE SODIUM 40 MG TAB PO SCH (08:34)
[2017-03-24] MEDS: POLYETHYLENE GLYCOL 3350 17 GM PKT PO SCH (08:34)
[2017-03-24] MEDS: predniSONE 10 MG TAB PO SCH (08:34)
--- NOTE | 2017-03-24 21:30 | SOAPPROG ---
SOAP Progress Note Assessment/Plan: Assessment: * Multiple sclerosis flare with left-sided weakness and impairment to mobility and activities of daily living, status post 5 days of high-dose IV corticosteroids. * Initial functional independence measure 56 on 03/15/2017, increase to 76 on 2017. SBA.CGA for mobility and ADLs. Left inattention compromises safety; needs cueing. Cues to initiate. Had fecal and urinary incontinence today and did not ask for assistance. * Continue PT and OT to optimize mobility towards home at the modified independent level. * Cognitive impairment and dysarthria. * SLUMS with good memory; impaired attention, memory and executive function. * Not safe to be left alone. * Continue VEHICLE OPERATOR * Urinary incontinence. * Rehabilitation bladder program with timed voiding every 2 hours while awake. * Bladder scanning has ruled out overflow incontinence. * May have neurogenic bladder with episodes of incontinence without perception of need to void. * Check UA 03/22/2017; - UA only with slight nitrates. Will defer on antibiotic treatment. Denies symptoms * Vitamin D deficiency. Continue vitamin D supplement. * Medical management of multiple sclerosis. Continue prednisone taper as ordered out of the hospital. * Prophylaxis. She has been discharged on pantoprazole for the duration of her prednisone taper. Mobility is much improved as of 03/20/2017. Will discontinue enoxaparin starting 03/21/2017. Plan: 03/23/17 13:31 03/24/17 21:29 Subjective: No new complaints. Denies any urinary symptoms Objective: Vital Signs Temp Pulse Resp BP Pulse Ox 36.3 C 74 15 97/70 L 95 03/24/17 18:43 03/24/17 18:43 03/24/17 18:43 03/24/17 18:43 03/24/17 18:43 03/23/17 03/24/17 03/25/17 05:59 05:59 05:59 Intake Total 200 727 209 Output Total 700 300 Balance -500 427 209 Physical Exam - Physical Exam General Appearance: WD/WN, alert, no apparent distress Respiratory: No respiratory distress Neuro/Psych: alert, normal mood/affect, oriented x 3 ICD10 Worksheet Patient Problems: Problems Problem Status Onset Multiple sclerosis Acute Urinary incontinence Acute
[2017-03-25] MEDS: PANTOPRAZOLE SODIUM 40 MG TAB PO SCH (08:27)
[2017-03-25] MEDS: CHOLECALCIFEROL VIT D3 1,000 UNITS TAB PO SCH (08:27)
[2017-03-25] MEDS: predniSONE 5 MG TAB PO SCH (08:27)
[2017-03-25] MEDS: POLYETHYLENE GLYCOL 3350 17 GM PKT PO SCH (08:27)
--- NOTE | 2017-03-25 13:43 | SOAPPROG ---
SOAP Progress Note Assessment/Plan: Assessment: * Multiple sclerosis flare with left-sided weakness and impairment to mobility and activities of daily living, status post 5 days of high-dose IV corticosteroids. * Initial functional independence measure 56 on 03/15/2017, increase to 76 on 2017. SBA.CGA for mobility and ADLs. Left inattention compromises safety; needs cueing. Cues to initiate. Had fecal and urinary incontinence today and did not ask for assistance. * Continue PT and OT to optimize mobility towards home at the modified independent level. * Cognitive impairment and dysarthria. * SLUMS with good memory; impaired attention and executive function. * Not safe to be left alone. * Continue IMPLEMENTATION ANALYST * Urinary incontinence. Improving. * Rehabilitation bladder program with timed voiding every 2 hours while awake. * Bladder scanning has ruled out overflow incontinence. * May have neurogenic bladder with episodes of incontinence without perception of need to void. * UA 03/22/2017 with positive nitrites, but only 1-3 WBCs. Culture with Escherichia coli, pansensitive. With no symptoms and weakly positive UA this is likely asymptomatic bacteriuria. No treatment is indicated. * Vitamin D deficiency. Continue vitamin D supplement. * Medical management of multiple sclerosis. Continue prednisone taper as ordered out of the hospital. * Prophylaxis. She has been discharged on pantoprazole for the duration of her prednisone taper. Mobility is much improved as of 03/20/2017. Will discontinue enoxaparin starting 03/21/2017. Followup. Case Management assisting in finding new primary care provider and neurologist closer to home in [place]. works full-time but may be able to hire caregiver. Son involved. Set tentative discharge date of 03/29/2017. 03/25/17 13:41 Subjective: No complaints. Sleeping well. Not in pain. No cough, dyspnea, fevers, chills. No UTI symptoms. Objective: Vital Signs Temp Pulse Resp BP Pulse Ox 36.6 C 78 16 105/79 92 03/25/17 06:09 03/25/17 06:09 03/25/17 06:09 03/25/17 06:09 03/25/17 06:09 Microbiology 03/23/17 00:30 Urine Culture - Final Urine,Clean Catch Escherichia Coli 03/24/17 03/25/17 03/26/17 05:59 05:59 05:59 Intake Total 726 559 Output Total 300 Balance 427 559 Physical Exam - Physical Exam General Appearance: WD/WN, alert, no apparent distress Respiratory: normal breath sounds, No crackles, No rhonchi, No wheezing Cardiac/Chest: regular rate, rhythm, No diastolic murmur, No systolic murmur Skin: normal color, warm/dry Neuro/Psych: alert, normal mood/affect, abnormal gait (Slow, with front wheeled walker, PT assisting to avoid objects on the left.) ICD10 Worksheet Patient Problems: Problems Problem Status Onset Multiple sclerosis Acute Urinary incontinence Acute
[2017-03-26] MEDS: PANTOPRAZOLE SODIUM 40 MG TAB PO SCH (08:03)
[2017-03-26] MEDS: CHOLECALCIFEROL VIT D3 1,000 UNITS TAB PO SCH (08:03)
[2017-03-26] MEDS: predniSONE 5 MG TAB PO SCH (08:03)
[2017-03-26] MEDS: POLYETHYLENE GLYCOL 3350 17 GM PKT PO SCH (08:04)
--- NOTE | 2017-03-26 13:12 | SOAPPROG ---
SOAP Progress Note Assessment/Plan: Assessment: * Multiple sclerosis flare with left-sided weakness and impairment to mobility and activities of daily living, status post 5 days of high-dose IV corticosteroids. * Initial functional independence measure 56 on 03/15/2017, increase to 76 on 2017. SBA/CGA for mobility and ADLs. Left inattention compromises safety; needs cueing. Cues to initiate. Does not always ask for assistance even if she has fecal or urinary incontinence. * Continue PT and OT to optimize mobility towards home at the modified independent level. * Cognitive impairment and dysarthria. * SLUMS with good memory; impaired attention and executive function. * Not safe to be left alone. * Continue ANIMAL CHIROPRACTOR * Urinary incontinence. Improving. * Rehabilitation bladder program with timed voiding every 2 hours while awake. * Bladder scanning has ruled out overflow incontinence. * May have neurogenic bladder with episodes of incontinence without perception of need to void. * UA 03/22/2017 with positive nitrites, but only 1-3 WBCs. Culture with Escherichia coli, pansensitive. With no symptoms and weakly positive UA this is likely asymptomatic bacteriuria. No treatment is indicated. * Vitamin D deficiency. Continue vitamin D supplement. * Medical management of multiple sclerosis. Continue prednisone taper as ordered out of the hospital; last day is tomorrow, 03/27/2017. * Prophylaxis. She has been discharged on pantoprazole for the duration of her prednisone taper. Mobility is much improved as of 03/20/2017. Will discontinue enoxaparin starting 03/21/2017. Followup. Case Management assisting in finding new primary care provider and neurologist closer to home in [place]. works full-time but may be able to hire caregiver. Son involved. Set tentative discharge date of 03/29/2017. 03/26/17 13:10 Subjective: No complaints. Sleeping well. Not in pain. Objective: Vital Signs Temp Pulse Resp BP Pulse Ox 36.5 C 76 14 107/86 H 96 03/26/17 06:29 03/26/17 06:29 03/26/17 06:29 03/26/17 06:29 03/26/17 06:29 Microbiology 03/23/17 00:30 Urine Culture - Final Urine,Clean Catch Escherichia Coli 03/25/17 03/26/17 03/27/17 05:59 05:59 05:59 Intake Total 559 1200 150 Balance 559 1200 150 Physical Exam - Physical Exam General Appearance: WD/WN, alert, no apparent distress Respiratory: No respiratory distress, No accessory muscle use Skin: normal color, warm/dry Neuro/Psych: alert, normal mood/affect, oriented x 3, other (Ataxia with the left lower extremity) ICD10 Worksheet Patient Problems: Problems Problem Status Onset Multiple sclerosis Acute Urinary incontinence Acute
[2017-03-27 06:43] VITALS: RESP 16
[2017-03-27] MEDS: CHOLECALCIFEROL VIT D3 1,000 UNITS TAB PO SCH (09:05)
[2017-03-27] MEDS: POLYETHYLENE GLYCOL 3350 17 GM PKT PO SCH (09:05)
[2017-03-27] MEDS: predniSONE 5 MG TAB PO SCH (09:06)
--- NOTE | 2017-03-27 13:48 | SOAPPROG ---
SOAP Progress Note Assessment/Plan: Assessment: * Multiple sclerosis flare with left-sided weakness and impairment to mobility and activities of daily living, status post 5 days of high-dose IV corticosteroids. * Initial functional independence measure 56 on 03/15/2017, increase to 76 on 2017 and to 83 as of 03/27/2017. Ambulates 100-150 feet standby assist with a front wheeled walker transfers standby assist with front wheeled walker needing cues. Supervision level for ADLs except contact guard to standby assist for shower transfer and contact guard assist for bathing. Left arm, hand and leg less functional when she has fatigue.. * Continue PT and OT to optimize mobility towards home at the modified independent level. * Cognitive impairment and dysarthria. * SLUMS with good memory; impaired attention and executive function. Impaired problem solving and reasoning. Decreased awareness of deficits. * Not safe to be left alone. * Continue MINE SAFETY DIRECTOR * Urinary incontinence. Improving. * Rehabilitation bladder program with timed voiding every 2 hours while awake. * Bladder scanning has ruled out overflow incontinence. * May have neurogenic bladder with episodes of incontinence without perception of need to void. * UA 03/22/2017 with positive nitrites, but only 1-3 WBCs. Culture with Escherichia coli, pansensitive. With no symptoms and weakly positive UA this is likely asymptomatic bacteriuria. No treatment is indicated. * Vitamin D deficiency. Continue vitamin D supplement. * Medical management of multiple sclerosis. Prednisone taper completed 2017. * Prophylaxis. She has been discharged on pantoprazole for the duration of her prednisone taper. Mobility is much improved as of 03/20/2017. Will discontinue enoxaparin starting 03/21/2017. Attended staffing, 15 min. Discussed with case management, nursing, PT, OT, MINE SAFETY DIRECTOR. works full-time but may be able to hire caregiver. Son involved. Discharge home with 03/28/2017. Follow up with neurologist Dr. Puri in [place]. Has new primary care provider Dr. Rico in [facility]. 03/27/17 13:44 Subjective: No complaints. Looking for to going home tomorrow. Denies fevers, chills, cough, dyspnea, dysuria, pain. Objective: Vital Signs Temp Pulse Resp BP Pulse Ox 36.6 C 78 16 107/72 94 03/27/17 06:43 03/27/17 06:43 03/27/17 06:43 03/27/17 06:43 03/27/17 06:43 03/26/17 03/27/17 03/28/17 05:59 05:59 05:59 Intake Total 1200 500 900 Balance 1200 500 900 - Time Spent With Patient Time Spent With Patient: Greater than 35 min floor time today, including more than 50% of time in coordination of care during staffing, and counseling patient. Physical Exam - Physical Exam General Appearance: WD/WN, alert, no apparent distress Respiratory: No respiratory distress, No accessory muscle use Skin: normal color, warm/dry Neuro/Psych: alert, normal mood/affect, oriented x 3, other (Ataxic gait with impairment to placement of leg especially with turning.) ICD10 Worksheet Patient Problems: Problems Problem Status Onset Multiple sclerosis Acute Urinary incontinence Acute
--- NOTE | 2017-03-27 17:24 | PDOREHIP ---
Admission [facility] - Admission - 3 Day Assessment Period Admission Date/Day 1: 03/13/17 Day 2: 03/14/17 Day 3: 03/15/17 Discharge [facility] - Discharge - 3 Day Assessment Period 2 Days Prior to Anticipated Discharge Date: 03/26/17 1 Day Prior to Anticipated Discharge Date: 03/27/17 Anticipated Discharge Date: 03/28/17 - Discharge Skin Conditions Unhealed Pressure Ulcer (1 or more/Stage 1 or >)-Discharge: 0. No
[2017-03-27 20:28] VITALS: TEMP 97.6
[2017-03-28 06:11] VITALS: BP 96/66; PULSE 71; O2SAT 96
[2017-03-28] MEDS: CHOLECALCIFEROL VIT D3 1,000 UNITS TAB PO SCH (08:15)
[2017-03-28] MEDS: POLYETHYLENE GLYCOL 3350 17 GM PKT PO SCH (08:16)
--- NOTE | 2017-03-28 18:15 | GDS ---
[f rep st] DISCHARGE SUMMARY DISCHARGE DIAGNOSIS: Multiple sclerosis flare. DISCHARGE DIAGNOSIS: Multiple sclerosis flare. OTHER DISCHARGE DIAGNOSES: 1. Cognitive impairment. 2. Urinary incontinence. CONSULTATIONS: There were none. PROCEDURES: There were none. COMPLICATIONS: There were none. HISTORY AND HOSPITAL COURSE: This patient was admitted from [facility] where she had presented on 03/07/2017 with acute weakness and inability to walk. She was diagnosed with a multiple sclerosis exacerbation. She received 5 days of IV methylprednisolone 1 g per day and subsequently was placed on an oral prednisone taper. She had improvement in her condition and was beginning to ambulate at discharge. She did well in rehabilitation. Her initial functional independence measure was 56 on 03/15/2017, consistent with group home level of care. She required maximal assistance for lower body dressing and moderate assistance for toileting. She was able to transfer and ambulate with minimal assistance using a front-wheeled walker. She was noted to have impaired attention, memory and executive function. Regarding urinary incontinence, she was assisted to the commode for voiding every 2 hours while awake. She had a bladder scan which ruled out overflow incontinence. Urinalysis appeared positive and ultimately grew Escherichia coli , but she had no specific symptoms consistent with a urinary tract infection including no dysuria, no flank pain, no fevers or chills, so she was not treated with antibiotics. Her functional independence measure had increased to 76 by 03/22/2017, which is consistent with a high level of group home function and close to assisted living level of function. She required standby assist to contact guard assist for mobility and activities of daily living. She was noted to have left-sided inattention, which compromised safety. She needed cuing. She continued to have intermittent fecal and urinary incontinence. She needed cuing to initiate activities. Regarding cognitive impairment, the [facility] Mental Status Exam was administered and she scored a 22/30, which is consistent with dementia. She had good memory, but had impaired attention and executive function. She was not safe to be left home alone. Urinary incontinence improved. It was unclear whether or not she had neurogenic bladder as she did not always have perception of the need to void when she had urinary incontinence. Functional independence measure improved to 83 as of 03/27/2017, which is consistent with assisted living level of function. She had ambulated 100-150 feet with standby assist using a front-wheeled walker and transfers required standby assist and cues. Otherwise, she was at supervision level for activities of daily living except she required contact guard to standby assist for shower transfer and contact guard assist for bathing. She was noted to have reduced function of the left arm, hand and leg when she had fatigue. She completed her prednisone taper on 03/27/2017. She had also been treated with pantoprazole for the duration of her prednisone taper and the pantoprazole was also discontinued on 03/27/2017. LABORATORIES AND STUDIES: During her stay, only urinalysis which, as previously mentioned, was weakly positive for urinary tract infection with positive nitrite on 03/16/2017, leukocyte esterase was trace and on repeat urinalysis on 03/22/2017, leukocyte esterase was negative. Urine white blood cells were 1-3. Culture grew Escherichia coli which was pansensitive. DISCHARGE PLAN: 1. Condition upon discharge is good. 2. Activity is ad kapil, but she needs supervision to contact guard assist with mobilities and activities of daily living, as well as cuing due to continued safety concerns, and she is not safe to be left alone. 3. Diet: Regular. DATE OF NEXT APPOINTMENT: 1. She will follow up with a new primary care provider in [place], [place], Dr. Rico on 04/01/2017, at 4 p.m. 2. She will follow up with neurologist, Dr. Jones, with [facility] in [place] on 04/23/2017, at 3 p.m. MEDICATIONS AT DISCHARGE: Only cholecalciferol 2000 units p.o. daily. ISSUES TO BE ADDRESSED AT FOLLOWUP: 1. Multiple sclerosis. She has failed treatment with Copaxone and had breakthrough exacerbations. She will follow up with Dr. Jones regarding alternative medications to prevent multiple sclerosis exacerbations. 2. 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 She will discharge home with her who may hire a caregiver. 3. Urinary incontinence with possible neurogenic bladder, pending further evaluation. She can follow up with Primary Care as well as Neurology regarding this issue. Copy requested to: MD Annamaria Tracey [place] William Shaffer, MD [place], [place] /[id number]/MODL MTDD
== END 2017-03-28 19:20 | disposition home health service (06) | DRG 60 ==
LOC: BREH 03-13 12:41
PROVIDERS: ADMIT Internal Medicine; ATTEND Internal Medicine
DX: G35 Multiple sclerosis (principal); E55.9 Vitamin D deficiency, unspecified; R32 Unspecified urinary incontinence; G31.84 Mild cognitive impairment of uncertain or unknown etiology; R47.1 Dysarthria and anarthria
CPT/HCPCS: 92507-GN; 92522-GN; 97110-GO; 97110-GP; 97112-GP; 97116-GP; 97161-GP; 97166-GO; 97530-GO; 97530-GP; 97535-GO; J1650; J7512